=== PATIENT | female | born 1985 | race Caucasian/White ===

== ENCOUNTER 2017-05-28 13:12 | Inpatient (IN) | payer MEDICAID ==
[2017-05-28] MEDS ORDERED: CARBOPROST 250 MCG INJ IM ×2 (15:00→21:30)
[2017-05-28] MEDS ORDERED: MISOPROSTOL 200 MCG TAB PR ×2 (15:00→21:30)
[2017-05-28] MEDS ORDERED: METHYLERGONOVINE 0.2 MG INJ IM ×2 (15:00→21:30)
[2017-05-28] MEDS ORDERED: OXYTOCIN 30 UNITS/LR 500 ML IV ×2 (15:00→21:30)
[2017-05-28] MEDS: LACTATED RINGER'S 1,000 ML IV ×3 (15:36→21:28)
[2017-05-28 15:46] LABS: ADD MAN DIFF? NO
[2017-05-28 15:50] LABS: BASOPHILS % 0.3 % (0.0-2.0); EOSINOPHILS # 0.1 10^3/ul (0.0-0.5); EOSINOPHILS % 0.7 % (0.0-7.0); HEMOGLOBIN 11.9 g/dl (12.0-16.0); LYMPHOCYTES # 2.1 10^3/ul (0.8-2.9); MEAN CORPUSCULAR HEMOGLOBIN 31.2 pg (29.0-33.0); MEAN CORPUSCULAR VOLUME 91.6 fl (82.0-101.0); MEAN PLATELET VOLUME 11.6 fl (7.4-10.4); MONOCYTE # 0.5 10^3/ul (0.3-0.9); MONOCYTES % 7.9 % (0.0-11.0); NEUTROPHIL # 4.1 10^3/ul (1.6-7.5); PLATELET COUNT 235 10^3/UL (140-415); RED BLOOD COUNT 3.82 10^6/ul (4.20-5.40); RED CELL DISTRIBUTION WIDTH 13.8 % (11.5-14.5)
[2017-05-28 15:50] LABS: WHITE BLOOD COUNT 6.8 10^3/ul (4.8-10.8)
[2017-05-28 16:08] LABS: INR 0.94; PROTIME 12.7 Sec (11.9-14.9)
[2017-05-28 16:09] LABS: PARTIAL THROMBOPLASTIN TIME 24.1 Sec (25.0-35.0)
[2017-05-28 16:14] LABS: GLUCOSE 91 mg/dl (70-220)
[2017-05-28] MEDS ORDERED: KETOROLAC 30 MG INJ (16:27)
[2017-05-28] MEDS ORDERED: ONDANSETRON 4 MG INJ (16:27)
[2017-05-28] MEDS ORDERED: morphine SULFATE/PF (10 MG/10 ML) INJ (16:27)
[2017-05-28] MEDS ORDERED: METOCLOPRAMIDE 10 MG INJ (16:28)
[2017-05-28] MEDS ORDERED: EPHEDrine SULFATE 50 MG/5 ML SYG (16:43)
[2017-05-28] MEDS ORDERED: morphine (1 MG/ML) 10ML SYRINGE IV ×3 (18:00)
[2017-05-28] MEDS ORDERED: ONDANSETRON 4 MG INJ IV ×2 (18:00→18:30)
[2017-05-28] MEDS: OXYTOCIN 30 UNITS/LR 500 ML IVPB (18:21)
[2017-05-28] MEDS: CEFAZOLIN 3 GM in DEXTROSE 5% 100 ML IV (18:21)
[2017-05-28] MEDS ORDERED: morphine 2 MG INJ IV ×2 (18:30)
[2017-05-28] MEDS ORDERED: DIPHENHYDRAMINE 50 MG INJ IV (18:30)
[2017-05-28] MEDS ORDERED: morphine 4 MG/ML VIAL IV (18:30)
[2017-05-28] MEDS ORDERED: NALOXONE (0.4 MG/ML) INJ IV (18:30)
[2017-05-28] MEDS ORDERED: OXYMETAZOLINE 0.05% 15 ML NAS SPRAY NASAL ×2 (19:00→20:30)
[2017-05-28] MEDS: OXYTOCIN 30 UNITS/LR 500 ML IV ×3 (19:13→21:28)
[2017-05-28 20:10] LABS: RAPID PLASMA REAGIN NONREACTIVE (NR)
[2017-05-28] MEDS: KETOROLAC 30 MG INJ IV (20:23)
[2017-05-28] MEDS ORDERED: OXYCODONE/ACETAMINOPHEN (5/325) TAB PO ×2 (21:30)
[2017-05-28] MEDS ORDERED: HYDROCODONE/APAP (5/325) TAB PO ×2 (21:30)
[2017-05-28] MEDS: CEFAZOLIN 1 GM/50 ML (PMX) 50 ML IVPB (22:09)
[2017-05-29] MEDS: OXYTOCIN 30 UNITS/LR 500 ML IV ×2 (00:20→01:28)
[2017-05-29] MEDS: LANOLIN 7 GM TUBE TOP (00:50)
[2017-05-29] MEDS: KETOROLAC 30 MG INJ IV ×2 (04:45→11:04)
[2017-05-29] MEDS: LACTATED RINGER'S 1,000 ML IV ×3 (05:28→21:28)
[2017-05-29] MEDS: IBUPROFEN 600 MG TAB PO ×5 (05:38→23:41)
[2017-05-29 08:50] LABS: ADD MAN DIFF? NO
[2017-05-29 08:55] LABS: BASOPHILS % 0.5 % (0.0-2.0); EOSINOPHILS % 0.5 % (0.0-7.0); HEMATOCRIT 31.3 % (37.0-47.0); HEMOGLOBIN 10.6 g/dl (12.0-16.0); LYMPHOCYTES # 1.7 10^3/ul (0.8-2.9); MEAN CORPUSCULAR HGB CONC 33.9 g/dl (32.0-37.0); MEAN CORPUSCULAR VOLUME 91.5 fl (82.0-101.0); MEAN PLATELET VOLUME 11.3 fl (7.4-10.4); MONOCYTE # 0.6 10^3/ul (0.3-0.9); NEUTROPHILS % 71.8 % (39.0-77.0); PLATELET COUNT 187 10^3/UL (140-415); RED BLOOD COUNT 3.42 10^6/ul (4.20-5.40); RED CELL DISTRIBUTION WIDTH 13.7 % (11.5-14.5)
[2017-05-29 08:55] LABS: WHITE BLOOD COUNT 8.3 10^3/ul (4.8-10.8)
[2017-05-29] MEDS: ACCU-CHEK XX (20:05)
[2017-05-29] MEDS: SENNA/DOCUSATE NA (8.6MG/50MG) TAB PO (20:54)
[2017-05-30] MEDS: LACTATED RINGER'S 1,000 ML IV (05:28)
[2017-05-30] MEDS: IBUPROFEN 600 MG TAB PO ×3 (05:47→17:30)
[2017-05-30] MEDS: ACCU-CHEK XX ×4 (07:30→20:05)
[2017-05-30] MEDS: SENNA/DOCUSATE NA (8.6MG/50MG) TAB PO ×2 (09:45→20:59)
[2017-05-30] MEDS: INFLUENZA VIRUS VACCINE 0.5 ML (DISPENSING) IM* (11:13)
[2017-05-31] MEDS: IBUPROFEN 600 MG TAB PO ×3 (00:14→12:01)
[2017-05-31] MEDS: ACCU-CHEK XX ×2 (08:19→12:00)
[2017-05-31] MEDS: SENNA/DOCUSATE NA (8.6MG/50MG) TAB PO (08:20)
[2017-05-31] MEDS: DIPHTH/TET/ACEL PERTUSS (ADULT) 0.5 ML VIAL IM* (12:00)
== END 2017-05-31 15:35 | disposition home or self-care (01) | DRG 765 ==
LOC: OBT 13:12 → L-D 13:13 → OBT 14:19 → L-D 14:19 → PP1 21:20
PROVIDERS: Obstetrics & Gynecology
PROC: 10D00Z1 Extraction of Products of Conception, Low, Open Approach (ICD-10-PCS; principal; 2017-05-28 17:00)
PROC: 3E033VJ Introduction of Other Hormone into Peripheral Vein, Percutaneous Approach (ICD-10-PCS; 2017-05-28 17:00)
DX: O34.211 Maternal care for low transverse scar from previous cesarean delivery (principal); Z68.41 Body mass index [BMI] 40.0-44.9, adult; O99.214 Obesity complicating childbirth; E66.01 Morbid (severe) obesity due to excess calories; O24.419 Gestational diabetes mellitus in pregnancy, unspecified control; O16.4 Unspecified maternal hypertension, complicating childbirth; Z37.0 Single live birth; Z3A.37 37 weeks gestation of pregnancy
CPT/HCPCS: 82947; 82962; 85025; 85610; 85730; 86592; 86850; 86900; 86901; 88307; 90686; 90715; 99464